=== PATIENT | female | born 1960 | race Caucasian/White ===

== ENCOUNTER 2017-03-07 10:14 | Outpatient (CLI) | payer BC ==
[~2017-03-07 10:14] MED LIST: HYDR-1189 PO; LEVO500T20 PO; METR500T PO
== END 2017-03-07 20:57 | disposition home or self-care (01) ==
LOC: SMA 10:14
DX: Z12.31 Encounter for screening mammogram for malignant neoplasm of breast (principal)
CPT/HCPCS: G0202

== ENCOUNTER 2019-03-24 10:08 | Outpatient (CLI) | payer BC | END 2019-03-24 20:28 | disposition home or self-care (01) | LOC: SMA 10:08 | PROVIDERS: ATTEND Specialist | DX: Z12.31 Encounter for screening mammogram for malignant neoplasm of breast (principal) | CPT/HCPCS: 77067 ==

== ENCOUNTER 2021-04-03 04:20 | Emergency (ER) | payer BC ==
[~2021-04-03] VITALS: Ht 165.1 cm; Wt 85.3 kg
[2021-04-03 04:20] VITALS: BP_SYST 124
[~2021-04-03 04:20] MED LIST changes: -HYDR-1189 PO; +HYDR-3919 PO
--- NOTE | 2021-04-03 04:32 | NUR ---
ER Dr. Soriano at bedside examining patient.
--- NOTE | 2021-04-03 04:32 | NUR ---
Patient to ER bed 2 to gown for evaluation. Side rails up.
--- NOTE | 2021-04-03 04:33 | NUR ---
Patient's family at bedside.
--- NOTE | 2021-04-03 04:34 | NUR ---
Patient BIB by family from home. C/O nose bleeding x today. Patient reported, nose bleeding since 0230 AM today, third time in this week. A/O,X4, no pain, bleeding stop now, place patient on threat monitoring analyst and pluse ox.
--- NOTE | 2021-04-03 06:27 | NUR ---
Blood for labwork drawn from tobacco grader. Patient tolerated well.
[2021-04-03 06:46] LABS: HEMATOCRIT 42.4 % (36-48); HEMOGLOBIN 14.3 g/dL (12.0-16.0); MEAN CORPUSCULAR HEMOGLOBIN 34 pg (27-31); MEAN CORPUSCULAR HGB CONC 34 % (32-36); MEAN CORPUSCULAR VOLUME 100 fL (79.0-98.0); RED BLOOD CELL COUNT(AUTO) 4.24 MIL/uL (4.2-6.2); WHITE BLOOD COUNT (AUTO) 13.3 K/uL (4.8-10.8)
[2021-04-03 06:51] LABS: PLATELET COUNT (AUTO) 787 K/uL (130-430)
[2021-04-03 07:01] LABS: CALCIUM 8.9 mg/dL (8.4-11.0); CREATININE 0.83 mg/dL (0.55-1.30); POTASSIUM 4.8 mmol/L (3.5-5.1)
[2021-04-03 07:04] LABS: PROTHROMBIN TIME 10.7 SECS (9.5-12.5)
[2021-04-03 07:06] LABS: ALBUMIN 3.3 g/dL (3.4-4.8); TOTAL BILIRUBIN 0.4 mg/dL (0.0-1.0)
[2021-04-03 07:45] VITALS: BP_SYST 120
--- NOTE | 2021-04-03 07:45 | NUR ---
Patient given written and verbal discharge instructions and verbalizes understanding. Dr. Jones discussed with patient the results and treatment provided. Patient in stable condition. ID arm band removed. Patient educated on pain management and to follow up with PMD. Pain Scale 0. Opportunity for questions provided and answered.
--- NOTE | 2021-04-03 07:45 | NUR ---
Pt. comfortable, no nose bleeding since arrival, discharge instructions given.
== END 2021-04-03 07:45 | disposition home or self-care (01) ==
LOC: SED 04:20
DX: R04.0 Epistaxis (principal); I10 Essential (primary) hypertension; K21.9 Gastro-esophageal reflux disease without esophagitis; Z88.0 Allergy status to penicillin; Z79.899 Other long term (current) drug therapy
CPT/HCPCS: 36415; 80053; 83051; 85014; 85048; 85049-TC; 85610-TC; 99283